=== PATIENT | female | born 1965 | race Two or more races ===

== ENCOUNTER 2018-07-01 07:42 | Day surgery (SDC) | payer OTHER ==
[2018-07-01 09:12] LABS: BEDSIDE GLUCOSE 129 MG/DL (70-105)
[2018-07-01] MEDS: LR 1,000 ML IV (09:21)
[2018-07-01] MEDS ORDERED: fentaNYL 100 MCG/2 ML INJECTION (J3010) As Ordered (09:52)
[2018-07-01] MEDS ORDERED: MIDAZOLAM INJ 2 MG/2 ML VIAL (J2250) As Ordered (09:52)
[2018-07-01] MEDS ORDERED: LIDOCAINE 2% INJ 100 MG/5 ML SDV (FOR ANES.) As Ordered (09:53)
[2018-07-01] MEDS ORDERED: PROPOFOL 200 MG/20 ML VIAL As Ordered (09:53)
[2018-07-01] MEDS ORDERED: ROCURONIUM BROMIDE 50 MG/5 ML VIAL As Ordered (09:54)
[2018-07-01] MEDS: dexameTHASONE 4 MG/ML 1ML VIAL (J1100) IV (10:42)
[2018-07-01] MEDS: AMPICILLIN SOD/SULBACTAM SOD 3 GM in D5W MINI-BAG PLUS 100 ML IV (10:42)
[2018-07-01] MEDS ORDERED: ONDANSETRON 4MG/2ML VIAL (J2405) As Ordered (10:51)
[2018-07-01] MEDS ORDERED: KETOROLAC 60 MG/2 ML VIAL (J1885) As Ordered (10:51)
[2018-07-01] MEDS: LIDOCAINE 2% W/ EPINEPHRINE 1.7 ML DENTAL INJ As Ordered (10:54)
[2018-07-01] MEDS ORDERED: GLYCOPYRROLATE INJ 0.2 MG/ML 2 ML VIAL As Ordered (11:50)
[2018-07-01] MEDS ORDERED: NEOSTIGMINE 10 MG/10 ML VIAL (J2710) As Ordered (11:50)
[2018-07-01] MEDS ORDERED: ONDANSETRON 4MG/2ML VIAL (J2405) IV (12:15)
[2018-07-01] MEDS ORDERED: fentaNYL 100 MCG/2 ML INJECTION (J3010) IV (12:15)
[2018-07-01] MEDS ORDERED: LR 1,000 ML IV (12:15)
[2018-07-01] MEDS ORDERED: HYDROMORPHONE HCL 0.5 MG/ 0.5 ML SYRINGE (J1170 PER 1) IV (12:15)
[2018-07-01] MEDS ORDERED: PERCOCET 5MG/325MG TAB PO (12:15)
[2018-07-01 12:17] LABS: BEDSIDE GLUCOSE 149 MG/DL (70-105)
== END 2018-07-01 15:15 | disposition home or self-care (01) ==
LOC: M SDC 07:42
DX: K02.9 Dental caries, unspecified (principal); E11.9 Type 2 diabetes mellitus without complications; I10 Essential (primary) hypertension; K21.9 Gastro-esophageal reflux disease without esophagitis; Z88.2 Allergy status to sulfonamides; F17.210 Nicotine dependence, cigarettes, uncomplicated; Z86.73 Personal history of transient ischemic attack (TIA), and cerebral infarction without residual deficits; Z79.899 Other long term (current) drug therapy; F43.10 Post-traumatic stress disorder, unspecified; F41.9 Anxiety disorder, unspecified
CPT/HCPCS: D7210